=== PATIENT | female | born 1985 | race Caucasian/White ===

== ENCOUNTER → 2017-12-29 | Outpatient (CLI) | payer OTHER ==
[2017-12-29 19:22] LABS: BASO # 0.1 (0.0-0.2); BASO % 0.9 % (0.0-2.0); EOS % 0.4 % (0-4.0); GRAN # 8.1 (1.4-6.5); GRAN % 78.5 % (42.2-75.2); HEMOGLOBIN 10.8 g/dl (12.5-16.0); LYMPH # 1.5 (1.2-3.4); LYMPH % 14.1 % (20.0-51.0); MEAN CELL VOLUME 91 fl (80.0-100.0); MEAN CORPUSCULAR HEMOGLOBIN 30 pg (27.0-31.0); MEAN CORPUSCULAR HGB CONC 33 g/dl (33.0-37.0); MEAN PLATELET VOLUME 11.2 fl (7.4-10.4); MONO # 0.6 (0.1-0.6); MONO % 5.7 % (1.7-9.3); PLATELET COUNT 189 K/mm3 (130-400); RED BLOOD COUNT 3.59 M/mm3 (4.10-5.30); REDCELL DISTRIBUTION WIDTH-CV 12.8 % (11.5-14.5)
[2017-12-29 19:24] LABS: HEMATOCRIT 32.5 % (37.0-47.0)
== END ==
LOC: ZMSC 18:20
PROVIDERS: Obstetrics & Gynecology
DX: N75.0 Cyst of Bartholin's gland (principal)

== ENCOUNTER 2021-06-26 15:08 | Outpatient (CLI) | payer BC ==
[2021-06-26] VITALS (8 sets, daily range): BP systolic 107–116; BP diastolic 55–70; PULSE 89–108; TEMP 98.3–98.6
[~2021-06-26] VITALS: Ht 160 cm; Wt 64.1 kg
--- NOTE | 2021-06-26 15:15 | NUR ---
Pt arrived on unit ambulatory and with complaints of contractions and back pain since this morning. Pt denies any leaking of fluid or vaginal bleeding and reports normal movement. Pt also reports issues with nausea and diarrhea starting this morning and unable to eat or drink like normal. EFM and toco monitors started. Vital signs WNL. SVE by this RN . Dr. Guallpa notified of pt's arrival. See physician notification for details.
[2021-06-26] MEDS ORDERED: PRENATAL (15:37)
[2021-06-26] MEDS ORDERED: NATURAL IRON65 MG (15:37)
[2021-06-26] MEDS ORDERED: BIOTIN2500 MCG PO (15:38)
[2021-06-26] MEDS ORDERED: CALCIUM-500 5001 CTB PO (15:38)
[2021-06-26] MEDS ORDERED: FIBER GUMMIES2.5 GM PO (15:39)
--- NOTE | 2021-06-26 16:45 | NUR ---
Dr. Guallpa at the bedside. FHR tracing reviewed. Orders for an additional liter of LR bolus to be given with some terb. See EMAR for details. SVE done - fingertip with OS but cervix closed and thick per Dr. Guallpa.
--- NOTE | 2021-06-26 19:35 | NUR ---
182: THIS RN PRESUMES CARE OF PT
--- NOTE | 2021-06-26 21:29 | NUR ---
2055: DR. SKINNER AT BS TO DISCUSS WITH PT. AND SPOUSE POC. DISCUSSING FHT CONCERN OF NOW. DR. SKINNER WOULD LIKE TO SEND THEM TO [facility] DUE TO DATING (31.5WK). PT. AND SPOUSE AGREEABLE. QUESTIONS INVITED AND ANSWERED FROM DR. SKINNER TO PT. 2103: BSUS TO CONFIRM PRESENTATION. VERTEX PRESENTATION PER US.
[2021-06-26 21:35] LABS: HEMOGLOBIN 10.3 g/dl (12.5-16.0); MEAN CELL VOLUME 90 fl (80.0-100.0); MEAN CORPUSCULAR HEMOGLOBIN 30 pg (27.0-31.0); MEAN CORPUSCULAR HGB CONC 34 g/dl (33.0-37.0); MEAN PLATELET VOLUME 11.9 fl (7.4-10.4); PLATELET COUNT 161 K/mm3 (130-400); RED BLOOD COUNT 3.42 M/mm3 (4.10-5.30); REDCELL DISTRIBUTION WIDTH-CV 13.7 % (11.5-14.5)
[2021-06-26 21:37] LABS: HEMATOCRIT 30.7 % (37.0-47.0)
[2021-06-26 21:51] LABS: ALBUMIN 2.8 gm/dL (3.5-5.0); BILIRUBIN,TOTAL 0.6 mg/dL (0.2-1.2); CALCIUM 8.3 mg/dL (8.4-10.2); CREATININE, serum 0.68 mg/dL (0.57-1.11); POTASSIUM 3.8 mmol/L (3.5-4.5); TOTAL PROTEIN 5.6 gm/dL (6.2-8.1)
[2021-06-26 21:53] LABS: COLLECTION METHOD CLEAN CATCH
[2021-06-26 21:58] LABS: PH 6 (5-8); SQUAMOUS EPITHELIAL 0-2 /hpf (0-10); URINE APPEARANCE Clear (CLEAR/HAZY); URINE BACTERIA None Seen (NONE SEEN); URINE BILIRUBIN Negative (NEGATIVE); URINE BLOOD Negative (NEGATIVE); URINE COLOR Straw (YELLOW); URINE GLUCOSE Negative (NEGATIVE); URINE KETONE 1+ (NEGATIVE); URINE LEUKOCYTE ESTERASE Negative (NEGATIVE); URINE NITRATE Negative (NEGATIVE); URINE PROTEIN(semi-quant) Negative (NEGATIVE); URINE RBC None Seen /hpf (0-2); URINE UROBILINOGEN Negative (NEGATIVE); URINE WBC None Seen /hpf (0-2)
--- NOTE | 2021-06-26 22:43 | NUR ---
0: EMS ARRIVES TO TRANSFER PT TO [facility]. REPORT GIVEN TO DRYWALL MECHANIC/EMT AND QUESTIONS ANSWERED. DISCUSSED POC WITH PT. TOOK OFF MONITORS AND EMS TEAM ASSISTED HER ON GOURNEY. PT. HAD IV TO RH SALINE LOCKED. VITAL SIGNS STABLE AND CARE RELINQUISHED AT THIS TIME. 2235: CALLED REPORT TO [facility] AND DELIVERY. TALKED TO DOROTHY MENEZES. REPORT GIVEN TO RIRI AND QUESTIONS ANSWERED. GAVE HER CALL BACK NUMBER IN CASE SHE HAD QUESTIONS. INFORMED HER THAT PT. IS STABLE AND SVE HAS BEEN UNCHANGED AND SHE SHOULD ARRIVE IN ABOUT AN HOUR. RN HAD NO FURTHER QUESTIONS AND KNOWS WHO TO GET AHOLD OF IF SHE DOES.
== END 2021-06-26 22:30 | disposition short-term general hospital (02) ==
LOC: LDRO 15:08
PROVIDERS: Student in an Organized Health Care Education/Training Program
DX: O62.9 Abnormality of forces of labor, unspecified (principal); O26.893 Other specified pregnancy related conditions, third trimester; M54.9 Dorsalgia, unspecified; Z3A.31 31 weeks gestation of pregnancy
CPT/HCPCS: J0702; J2405; J3105; J7120

== ENCOUNTER 2021-08-11 12:57 | Outpatient (CLI) | payer BC ==
[~2021-08-11] VITALS: Ht 160 cm; Wt 69.5 kg
[~2021-08-11 12:57] MED LIST: BIOTIN2500 MCG PO; CALCIUM-500 5001 CTB PO; FIBER GUMMIES2.5 GM PO; NATURAL IRON65 MG; PRENATAL
[2021-08-11 13:10] VITALS: BP 119/74; PULSE 86; TEMP 98.1
--- NOTE | 2021-08-11 13:36 | NUR ---
1310 PATIENT HERE FOR COMPLAINTS OF CONTRACTIONS THAT STARTED AROUNF 9 THIS AM AND HAVE GOTTEN STRONGER. ALSO HAD SOME SPOTTING AND MUCUS THIS MORNING. EFM ON FHT 130 BABY VERY ACTIVE. CONTRACTIONS 3-8 MIN IRREGULAR AND PALPATE MILD. AMNIOTRACE NEGATIVE. SVE /-3 DR SKINNER CALLED AND UPDATED ON ALL ABOVE INFORMATION. ORDERS TO MONITOR FOR 20 MIN IF BABY IS REACTIVE, AND CERVIX UNCHANGED FROM OFFICE MAY SEND HOME.
[2021-08-11 13:56] VITALS: BP 106/69; PULSE 84
--- NOTE | 2021-08-11 13:57 | NUR ---
6193 ALL DISCHARGE INSTRUCTIONS GIVEN WITH VERBAL UNDERSTANDING. NO CHANGES NOTED TO SVE. ORDERS TO FOLLOW UP WITH DR ALEXANDER TOMORROW WITH SCHEDULED APPOINTMENT
== END 2021-08-11 13:58 | disposition home or self-care (01) ==
LOC: LDRO 12:57
DX: O62.9 Abnormality of forces of labor, unspecified (principal); Z3A.36 36 weeks gestation of pregnancy

== ENCOUNTER 2021-08-12 12:05 | Inpatient (IN) | payer BC ==
[2021-08-12] VITALS (20 sets, daily range): BP systolic 94–129; BP diastolic 51–73; PULSE 61–137; TEMP 97.7–97.8
--- NOTE | 2021-08-12 11:35 | NUR ---
pt ambulatory onto unit. changed into clean gown. fhr monitor/toco applied. pt complaining of contractions. pt denies decreased movement, vaginal bleeding, or any leaking of fluid. Vital signs stable. 1155 SVE this RN -/-2. 1159 Dr Leggett notified. Plan of care discussed with patient. pt verbalizes understanding.
[2021-08-12 13:05] LABS: BASO # 0.1 K/mm3 (0.0-0.2); BASO % 0.7 % (0.0-2.0); EOS # 0.1 K/mm3 (0.0-0.7); EOS % 0.7 % (0.0-4.0); GRAN # 6.6 K/mm3 (1.4-6.5); GRAN % 68.9 % (42.2-75.2); HEMOGLOBIN 11.7 g/dl (12.5-16.0); LYMPH % 21.3 % (20.0-51.0); MEAN CELL VOLUME 86 fl (80.0-100.0); MEAN CORPUSCULAR HEMOGLOBIN 30 pg (27-31); MEAN CORPUSCULAR HGB CONC 35 g/dl (33.0-37.0); MONO # 0.8 K/mm3 (0.1-0.6); PLATELET COUNT 149 K/mm3 (130-400); RED BLOOD COUNT 3.93 M/mm3 (4.10-5.30); REDCELL DISTRIBUTION WIDTH-CV 13.9 % (11.5-14.5)
[2021-08-12 13:07] LABS: HEMATOCRIT 33.9 % (37.0-47.0)
--- NOTE | 2021-08-12 16:15 | NUR ---
1530 SVE by this RN 0. 1533 Dr. Leggett called to come over for delivery. 1545 Pt begins to start pushing with contractions. 1555 Spontaenous vaginal delivery of viable male . Infant bulb suctioned and stimulated. Infant placed onto mother's chest. A Sarath takes over care of . Infant dried and taken to warmer. 1558 Spontaneous delivery of placenta. Pitocin bolus started per protocol. !st degree laceration repaired by Dr. Leggett. Fundal massage done. Firm/midline. Scant amt of bleeding noted. Safety precautions and plan of care discussed with patient. Pt verbalizes understanding.
[2021-08-13 01:30] VITALS: BP 103/70; PULSE 87; TEMP 97.6
[2021-08-13 05:10] VITALS: BP 108/65; PULSE 84
[2021-08-13 07:30] VITALS: BP 97/55; PULSE 79; TEMP 97.8
[2021-08-13] MEDS ORDERED: IBU800 M1 PO (08:33)
--- NOTE | 2021-08-13 09:30 | NUR ---
Initial visit; Patient thanked Fitness Teacher for offering congratulations and God's blessings for the of their son. Fitness Teacher thanked family for choosing [place] [address].
== END 2021-08-13 18:10 | disposition home or self-care (01) | DRG 807 ==
LOC: LDRO 12:05 → LDR 12:07 → OB 20:00
PROVIDERS: Obstetrics & Gynecology; ADMIT Obstetrics & Gynecology
PROC: 10E0XZZ Delivery of Products of Conception, External Approach (ICD-10-PCS; principal; 2021-08-12)
PROC: 10907ZC Drainage of Amniotic Fluid, Therapeutic from Products of Conception, Via Natural or Artificial Opening (ICD-10-PCS; 2021-08-12)
PROC: 0HQ9XZZ Repair Perineum Skin, External Approach (ICD-10-PCS; 2021-08-12)
DX: O99.02 Anemia complicating childbirth (principal); Z37.0 Single live birth; D64.9 Anemia, unspecified; O70.0 First degree perineal laceration during delivery; Z3A.38 38 weeks gestation of pregnancy
CPT/HCPCS: J2590; J7120

== ENCOUNTER 2021-09-26 20:00 | Emergency (ER) | payer BC ==
[~2021-09-26] VITALS: Ht 160 cm; Wt 57.3 kg
[~2021-09-26 20:00] MED LIST changes: +IBU800 M1 PO
[2021-09-26 21:42] VITALS: BP 116/73; PULSE 90; TEMP 98.1
== END 2021-09-26 21:42 | disposition home or self-care (01) ==
LOC: COL.ER 20:00
DX: S92.415A Nondisplaced fracture of proximal phalanx of left great toe, initial encounter for closed fracture (principal); W18.40XA Slipping, tripping and stumbling without falling, unspecified, initial encounter; W22.8XXA Striking against or struck by other objects, initial encounter; Z91.040 Latex allergy status